=== PATIENT | female | born 1975 | race Caucasian/White ===

== ENCOUNTER 2020-03-29 00:55 | Outpatient (CLI) | payer BC, SELFPAY ==
[2020-03-29 18:12] LABS: SARS-CoV-2 RNA PCR Negative
== END 2020-03-29 00:56 | disposition home or self-care (01) ==
LOC: ANHCOVIDDT 00:56
PROVIDERS: PCP Family Medicine; Visit Provider Surgery
DX: Z01.812 Encounter for preprocedural laboratory examination (principal); Z20.828 Contact with and (suspected) exposure to other viral communicable diseases
CPT/HCPCS: 87635; C9803; U0003

== ENCOUNTER 2020-03-29 10:59 | Outpatient (CLI) | payer BC, SELFPAY ==
--- NOTE | 2020-03-29 11:03 | ECG_ITS ---
Measurements Intervals [place] Rate: 75 P: -1 GA: 169 QRS: 25 QRSD: 80 T: 18 QT: 390 QTc: 436 Interpretive Statements SINUS RHYTHM BORDERLINE R WAVE PROGRESSION, ANTERIOR LEADS BASELINE ARTIFACT- I, II, III, AVR, AVL, AVF, V5-V6 BORDERLINE ECG Electronically Signed On 03-29-2020 11:59:45 CDT by Rob Wright D.O.
== END 2020-03-29 11:00 | disposition home or self-care (01) ==
LOC: ANHSURGERY 11:03
PROVIDERS: PCP Family Medicine; Visit Provider Surgery
DX: Z01.812 Encounter for preprocedural laboratory examination (principal); R10.11 Right upper quadrant pain; I10 Essential (primary) hypertension
CPT/HCPCS: 36415; 86850; 86900; 86901; 93005

== ENCOUNTER 2020-03-31 02:37 | Day surgery (SDC) | payer BC, SELFPAY ==
[2020-03-26 10:16] VITALS: BMI 36.2
[2020-03-31] VITALS (9 sets, daily range): BP systolic 102–147; BP diastolic 46–85; PULSE 58–94; RESP 12–18; TEMP 36.1–36.6; O2SAT 94–99
[2020-03-31] MEDS: LACTATED RINGERS 1,000 ML 30 ML IV CONT (10:14)
[2020-03-31] MEDS: KETOROLAC 15 MG/ML VIAL (*BKC) IV PUSH (10:15)
[2020-03-31] MEDS: ACETAMINOPHEN 500 MG TABLET 1000 MG PO (10:15)
--- NOTE | 2020-03-31 10:38 | WPDANESEPPF ---
Anes - Initial Pre Proc Eval Procedure: Operation Date: 03/31/20 11:30 Proposed Procedures p Laparoscopic Cholecystectomy Possible Open - Riki Arnold DO Date/Time: 03/31/20 10:38 Surgeon: Riki Arnold DO Pre Op Diagnosis: Right Upper Quadrant Pain Patient Data Age: 44 Gender: F Height: 5 ft 4 in Weight: 95.75 kg Allergies Allergy/AdvReac Type Severity Reaction Status Date / Time No Known Allergies Allergy Verified 03/26/20 09:53 Home Medications Medication Instructions Recorded Confirmed Type blood-glucose meter #1 each 10/13/19 03/30/20 Rx escitalopram oxalate 10 mg tablet 10 mg PO DAILY #90 tablet 10/13/19 03/30/20 Rx lancets 33 gauge #100 each 10/13/19 03/30/20 Rx topiramate 25 mg tablet 25 mg PO DAILY #90 tablet 10/13/19 03/30/20 Rx blood sugar diagnostic #100 each 12/11/19 03/30/20 Rx metformin 500 mg tablet 500 mg PO BID #180 tablet 02/20/20 03/30/20 Rx Patient hx anesthesia problems: none Family hx anesthesia problems: none PMFSH Past Medical History Medical History Asthma GERD without esophagitis HTN (hypertension) Hx of renal calculi Migraines Nonalcoholic fatty liver disease Obstructive sleep apnea Surgical History Surgical History H/O lithotripsy (~2013) History of section (~2002) Family History Family History Father Asthma Family history of primary malignant neoplasm of liver Grandparent Family history of cardiovascular disease Family history of Alzheimer's disease Family history of malignant neoplasm of breast Mother Family history of neuropathy Other Thyroid disease Obesity Grandparent Family history of malignant neoplasm of breast Diabetes mellitus Social History Social History Smoking status: Never smoker Alcohol intake: current Living arrangements: with family 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 Questions were solicited and answers provided to the satisfaction of the patient/family/POA.
--- NOTE | 2020-03-31 11:37 | WPDHPUPDATE1 ---
History and Physical Update Update Date/Time: 03/31/20 11:37 History and Physical has been reviewed, including an updated exam of the patient. There are NO changes in the patient's condition. Risks, benefits, and alternatives have been discussed and questions answered. Patient agrees to proceed with procedure.
[2020-03-31 12:13] LABS: Glucose Point of Care 93 (65-105)
[2020-03-31] MEDS: ceFAZolin 2 GM/D5W 50 ML 2 GM/50 ML BAG IVPB (12:16)
[2020-03-31] MEDS: BUPIVACAINE/EPINEPHRINE 0.5% 10 ML VIAL 30 ML INFILTRATE (12:42)
--- NOTE | 2020-03-31 13:12 | PM.PROC ---
Procedure Note - Detailed Date of procedure: 03/31/20 Pre-op diagnosis: Right Upper Quadrant Pain, Gallbladder polyp Post-op diagnosis: same Procedure performed: Laparoscopic Cholecystectomy Description of procedure: Procedure as well as risks, benefits, and alternatives were discussed with patient. Written consent was obtained and placed in chart prior to procedure. The patient was brought back to surgical suite. Patient was placed in supine position on operating table. Time-out was done to confirm patient and procedure. Patient was then intubated by the anesthesia department. Abdomen was prepped and draped in sterile fashion using chlorhexidine prep. 0.5% bupivacaine with epinephrine was infiltrated at each site of incision. A 5 millimeter incision was made near the umbilicus, and a 5 millimeter Optiview trocar was advanced through the abdominal layers under direct visualization. Once inside the abdominal cavity, carbon dioxide was insufflated to create a pneumoperitoneum. The camera was inserted and the abdomen was inspected. No immediate abnormalities were identified. The patient was placed in reverse Trendelenburg position and rotated slightly to the left. An 11 millimeter incision was made in the subxiphoid region, and an 11 millimeter trocar was inserted under direct visualization. Two 5 millimeter incisions were made in the right upper quadrant, and two 5 millimeter trocars were inserted under direct visualization. The gallbladder was identified and grasped at the fundus and retracted superiorly. It was then grasped at the infundibulum retracted laterally. Careful dissection around the neck of the gallbladder was performed using blunt dissection with a [place] grasper and hook electrocautery. The cystic duct was identified, and a window was created behind it. The cystic artery was also identified and a window was created behind it. The critical view of safety was identified, visualizing the cystic duct running directly into the neck of the gallbladder, and the cystic artery running directly into the wall of the gallbladder. A 5 millimeter clip arc welder apprentice was then used to place 2 clips proximally and 1 clip distally on both the cystic duct and cystic artery. They were then both transected using endoscopic scissors. Once safely away from the randy hepatitis, the gallbladder was dissected free from the liver bed using hook electrocautery. Hemostasis was achieved along the way. The gallbladder was removed completely and then removed through the subxiphoid port. The liver bed was then inspected. Hemostasis appeared adequate, and our clips appeared secure. The area was gently irrigated with sterile saline. No other abnormalities were seen. The patient was flattened out in bed, and 1 final inspection was made around the abdominal cavity. The subxiphoid port was removed, and a Eladio Jena cone was used to approximate the fascia with an 0-Vicryl simple interrupted suture. The remaining ports were then removed under direct visualization, the camera was removed, and the pneumoperitoneum was released. The skin of the incisions was approximated using 4-0 Monocryl subcuticular sutures. Exofin glue was applied on top. The patient was then awakened from anesthesia, extubated, and transferred to recovery. Anesthesia: GETA and local (0.5% bupivicaine with epi) Surgeon: Riki Arnold DO Estimated blood loss (mL): 5 Drains: No Packing: No Pathology: yes Complications: No immediate complications Condition: stable (Patient tolerated procedure well, and is currently resting comfortably in recovery.) Disposition: same day Findings: Laparoscopic cholecystectomy was performed. The patient had a slightly enlarged liver and appeared to have signs of fatty liver disease. The gallbladder was elongated and dilated but did not have any significant pericholecystic adhesions. The cystic duct appeared normal in size. No signs of cholelithiasis were noted. The
[2020-03-31] MEDS: fentaNYL CITRATE INJ (*CRX) 100 MCG/2 ML VIAL 25 MCG IV PUSH ×4 (13:29→13:55)
[2020-03-31 13:40] LABS: Glucose Point of Care 109 (65-105)
[2020-03-31] MEDS: oxyCODONE HCL (*CRX) 5 MG TAB IR PO (14:45)
== END 2020-03-31 15:15 | disposition home or self-care (01) ==
PROVIDERS: Visit Provider Surgery
PROC: 0FT44ZZ Resection of Gallbladder, Percutaneous Endoscopic Approach (ICD-10-PCS; CPT 47562; principal; 2020-03-31 11:30)
DX: K82.4 Cholesterolosis of gallbladder (principal); I10 Essential (primary) hypertension; K76.0 Fatty (change of) liver, not elsewhere classified; K21.9 Gastro-esophageal reflux disease without esophagitis; J45.909 Unspecified asthma, uncomplicated; G47.33 Obstructive sleep apnea (adult) (pediatric); Z79.84 Long term (current) use of oral hypoglycemic drugs; E66.9 Obesity, unspecified; Z68.36 Body mass index [BMI] 36.0-36.9, adult
CPT/HCPCS: 47562; 88304; A9270; J0690; J1100; J1885; J2250; J2405; J2704; J2710; J3010; J7030; J7120